=== PATIENT | female | born 1960 | race Caucasian/White ===

== ENCOUNTER → 2017-02-05 | Outpatient (CLI) | payer BC ==
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
== END | disposition home or self-care (01) ==
LOC: SLEEP 11:27
PROVIDERS: ATTEND Internal Medicine
DX: G47.33 Obstructive sleep apnea (adult) (pediatric) (principal); E66.9 Obesity, unspecified; G83.14 Monoplegia of lower limb affecting left nondominant side; M79.89 Other specified soft tissue disorders; I10 Essential (primary) hypertension; Z68.42 Body mass index [BMI] 45.0-49.9, adult
CPT/HCPCS: 99211

== ENCOUNTER 2018-01-23 12:08 | Inpatient (IN) | payer BC ==
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
[2018-01-23] MEDS ORDERED: cefTRIAXone IN SWFI 1,000 MG/10 ML SYRINGE IVP STA (13:03)
[2018-01-23 13:53] LABS: INR 1.5 (<1.2); Partial Thromboplastin Time 29.2 sec (22.0-30.0); Prothrombin Time 14.2 sec (9.0-12.0)
[2018-01-23 13:56] LABS: Basophils % (A) 0 %; Eosinophils # (A) 0.1 k/uL (0-0.7); Eosinophils % (A) 1 %; HCT 37.9 % (34.0-46.0); HGB 12.6 gm/dL (11.4-16.0); Lymphocytes # (A) 1.1 k/uL (1.0-4.8); Lymphocytes % (A) 15 %; MCH 30.7 pg (25.0-35.0); MCHC 33.3 g/dL (31.0-37.0); MCV 92.1 fL (80.0-100.0); Mean Platelet Volume 7.4; Monocytes # (A) 0.4 k/uL (0-1.0); Monocytes % (A) 5 %; Neutrophils # (A) 5.8 k/uL (1.3-7.7); Neutrophils % (A) 77 %; Platelet Count 272 k/uL (150-450); RBC 4.11 m/uL (3.80-5.40); RDW 14.7 % (11.5-15.5); WBC 7.5 k/uL (3.8-10.6)
[2018-01-23 13:58] LABS: ALT 47 U/L (9-52); AST 46 U/L (14-36); Albumin 3.8 g/dL (3.5-5.0); Alkaline Phosphatase 78 U/L (38-126); Anion Gap 13 mmol/L; Blood Urea Nitrogen 15 mg/dL (7-17); Carbon Dioxide 25 mmol/L (22-30); Chloride 101 mmol/L (98-107); Glucose 119 mg/dL (74-99); Potassium 3.4 mmol/L (3.5-5.1); Sodium 139 mmol/L (137-145); Total Bilirubin 0.7 mg/dL (0.2-1.3); Total Protein 7.3 g/dL (6.3-8.2)
--- NOTE | 2018-01-23 14:03 | US ---
EXAMINATION TYPE: US venous doppler duplex LE RT DATE OF EXAM: 01/23/2018 1:53 PM COMPARISON: NONE CLINICAL HISTORY: Pain. SIDE PERFORMED: right TECHNIQUE: The lower extremity deep venous system is examined utilizing real time linear array sonog dina with graded compression, doppler sonography and color-flow sonography. VESSELS IMAGED: External Iliac Vein (EIV) Common Femoral Vein Deep Femoral Vein Greater Saphenous Vein * Femoral Vein Popliteal Vein Small Saphenous Vein * Proximal Calf Veins (* superficial vessels) Patient 5'3", 320lbs. Technically difficult and somewhat limited study. Right Leg: Appears nnegative for DVT, in this somewhat limited study. Unable to obtain mid and distal femoral compression view due to depth, unable to turn in sag to see m id popliteal in color. No popliteal fossa lesion is seen. IMPRESSION: TECHNICALLY DIFFICULT EXAMINATION DEMONSTRATING NO DEFINITE DVT WITHIN THE RIGHT LEG.
[2018-01-23] MEDS ORDERED: VANCOMYCIN IV PER PHARMACY 1 EACH MISC MISCELLANE PRN (15:00)
[2018-01-23] MEDS ORDERED: ACETAMINOPHEN TAB 325 MG TAB PO PRN (15:01)
[2018-01-23] MEDS ORDERED: NALOXONE 0.4 MG/ML 1 ML VIAL IV PRN (15:01)
[2018-01-23] MEDS ORDERED: MORPHINE SULFATE 2 MG/ML SYRINGE IV PRN (15:01)
[2018-01-23] MEDS ORDERED: VANCOMYCIN 2,000 MG in SODIUM CHLORIDE 0.9% 500 ML IVPB STA (15:11)
[2018-01-23] MEDS: SODIUM CHLORIDE 0.9% 1,000 ML IV SCH (16:14)
[2018-01-23 16:40] VITALS: BMI 56.6
[2018-01-23] MEDS ORDERED: Potassium Replacement Protocol 1 EACH MISC MISCELLANE PRN (17:17)
[2018-01-23] MEDS: GABAPENTIN 400 MG CAP PO SCH ×2 (17:55→21:48)
[2018-01-23] MEDS: TRIAMTERENE-HCTZ 37.5-25MG 1 EACH CAP PO SCH (17:55)
[2018-01-23] MEDS: POTASSIUM CHLORIDE ER 20 MEQ TAB.ER PO SCH ×2 (18:20→19:56)
[2018-01-23] MEDS: WARFARIN 3 MG TAB PO SCH (18:20)
[2018-01-23] MEDS: NEOMYCIN-BACITRACIN-POLY OINT 14 GM TUBE TOPICAL SCH (21:48)
[2018-01-24] MEDS: VANCOMYCIN 2,000 MG in SODIUM CHLORIDE 0.9% 500 ML IVPB SCH ×2 (07:31→20:10)
[2018-01-24 07:39] LABS: ALT 50 U/L (9-52); AST 35 U/L (14-36); Albumin 3.6 g/dL (3.5-5.0); Alkaline Phosphatase 76 U/L (38-126); Anion Gap 12 mmol/L; Blood Urea Nitrogen 15 mg/dL (7-17); Calcium 9.1 mg/dL (8.4-10.2); Carbon Dioxide 26 mmol/L (22-30); Chloride 102 mmol/L (98-107); Glucose 103 mg/dL (74-99); Magnesium 2.1 mg/dL (1.6-2.3); Potassium 3.4 mmol/L (3.5-5.1); Sodium 140 mmol/L (137-145); Total Bilirubin 0.5 mg/dL (0.2-1.3); Total Protein 6.8 g/dL (6.3-8.2)
[2018-01-24 07:48] LABS: Basophils % (A) 1 %; Eosinophils # (A) 0.1 k/uL (0-0.7); Eosinophils % (A) 3 %; HCT 37.3 % (34.0-46.0); HGB 12.2 gm/dL (11.4-16.0); INR 1.8 (<1.2); Lymphocytes % (A) 22 %; MCHC 32.7 g/dL (31.0-37.0); Mean Platelet Volume 7.1; Monocytes # (A) 0.2 k/uL (0-1.0); Monocytes % (A) 5 %; Neutrophils # (A) 2.9 k/uL (1.3-7.7); Neutrophils % (A) 66 %; Platelet Count 317 k/uL (150-450); Prothrombin Time 16.2 sec (9.0-12.0); RBC 3.93 m/uL (3.80-5.40); WBC 4.4 k/uL (3.8-10.6)
[2018-01-24] MEDS ORDERED: cefTRIAXone IN SWFI 1,000 MG/10 ML SYRINGE IVP SCH (09:00)
[2018-01-24] MEDS: GABAPENTIN 400 MG CAP PO SCH ×3 (09:04→21:06)
[2018-01-24] MEDS: NEOMYCIN-BACITRACIN-POLY OINT 14 GM TUBE TOPICAL SCH ×2 (09:05→20:10)
[2018-01-24] MEDS: TRIAMTERENE-HCTZ 37.5-25MG 1 EACH CAP PO SCH (09:05)
[2018-01-24] MEDS ORDERED: Potassium Replacement Protocol 1 EACH MISC MISCELLANE PRN (09:16)
[2018-01-24] MEDS: POTASSIUM CHLORIDE ER 20 MEQ TAB.ER PO SCH ×2 (10:23→12:06)
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
[2018-01-24] MEDS: SODIUM CHLORIDE 0.9% 1,000 ML IV SCH (17:35)
[2018-01-24] MEDS ORDERED: WARFARIN 3 MG TAB PO SCH (18:00)
[2018-01-25] MEDS: GABAPENTIN 400 MG CAP PO SCH ×3 (07:50→21:01)
[2018-01-25] MEDS: VANCOMYCIN 2,000 MG in SODIUM CHLORIDE 0.9% 500 ML IVPB SCH ×2 (07:50→18:59)
[2018-01-25] MEDS: NEOMYCIN-BACITRACIN-POLY OINT 14 GM TUBE TOPICAL SCH ×2 (07:51→20:25)
[2018-01-25] MEDS: TRIAMTERENE-HCTZ 37.5-25MG 1 EACH CAP PO SCH (07:51)
[2018-01-25 09:43] LABS: INR 1.8 (<1.2); Prothrombin Time 16.8 sec (9.0-12.0)
[2018-01-25 09:57] LABS: Anion Gap 9 mmol/L; Blood Urea Nitrogen 14 mg/dL (7-17); Calcium 8.8 mg/dL (8.4-10.2); Carbon Dioxide 26 mmol/L (22-30); Chloride 106 mmol/L (98-107); Glucose 145 mg/dL (74-99); Potassium 3.7 mmol/L (3.5-5.1); Sodium 141 mmol/L (137-145)
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
[2018-01-25] MEDS: SODIUM CHLORIDE 0.9% 1,000 ML IV SCH (15:36)
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
--- NOTE | 2018-01-25 15:50 | US ---
EXAMINATION TYPE: US extremity nonvasc mass RT DATE OF EXAM: 01/25/2018 COMPARISON: Lower extremity Doppler duplex same date CLINICAL HISTORY: Cellulitis, abnormal physical exam. Patient states doctor felt posterior hardness i n right calf. Posterior right calf scanned with superficial edema noted. No masses or lesions identified. Contral ateral image taken. There are edema channels noted at the site of patient's symptomatology in the posterior right leg IMPRESSION: Abscess is not seen, edema is noted, correlate for cellulitis
[2018-01-25] MEDS: WARFARIN 3 MG TAB PO SCH (18:00)
[2018-01-26] MEDS ORDERED: VANCOMYCIN TROUGH DUE 1 EACH MISC MISCELLANE ONE (06:00)
[2018-01-26] MEDS: TRIAMTERENE-HCTZ 37.5-25MG 1 EACH CAP PO SCH (07:46)
[2018-01-26] MEDS: GABAPENTIN 400 MG CAP PO SCH ×3 (07:46→21:11)
[2018-01-26] MEDS: VANCOMYCIN 2,000 MG in SODIUM CHLORIDE 0.9% 500 ML IVPB SCH (07:46)
[2018-01-26] MEDS: NEOMYCIN-BACITRACIN-POLY OINT 14 GM TUBE TOPICAL SCH (07:47)
[2018-01-26 08:29] LABS: INR 2.1 (<1.2); Prothrombin Time 18.6 sec (9.0-12.0)
[2018-01-26 08:30] LABS: Anion Gap 9 mmol/L; Blood Urea Nitrogen 11 mg/dL (7-17); Calcium 9.1 mg/dL (8.4-10.2); Carbon Dioxide 26 mmol/L (22-30); Chloride 105 mmol/L (98-107); Glucose 100 mg/dL (74-99); Potassium 3.9 mmol/L (3.5-5.1); Sodium 140 mmol/L (137-145)
[2018-01-26] MEDS ORDERED: traMADol 50 MG TAB PO PRN (13:06)
[2018-01-26] MEDS ORDERED: MORPHINE SULFATE 2 MG/ML SYRINGE IV PRN (13:09)
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
[2018-01-26] MEDS: SODIUM CHLORIDE 0.9% 1,000 ML IV SCH (15:31)
[2018-01-26] MEDS: ceFAZolin IN SWFI 2 GM/20 ML SYRINGE IVP SCH ×2 (17:07→22:57)
[2018-01-26] MEDS: WARFARIN 3 MG TAB PO SCH (17:07)
[2018-01-26] MEDS: FAMOTIDINE 20 MG/2 ML VIAL IV SCH (21:11)
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
[2018-01-27] MEDS: ceFAZolin IN SWFI 2 GM/20 ML SYRINGE IVP SCH ×3 (07:51→23:59)
[2018-01-27] MEDS: FAMOTIDINE 20 MG/2 ML VIAL IV SCH (07:51)
[2018-01-27] MEDS: GABAPENTIN 400 MG CAP PO SCH ×3 (07:51→21:50)
[2018-01-27] MEDS: TRIAMTERENE-HCTZ 37.5-25MG 1 EACH CAP PO SCH (07:51)
[2018-01-27 08:21] LABS: INR 2.2 (<1.2); Prothrombin Time 19.6 sec (9.0-12.0)
[2018-01-27 08:30] LABS: Anion Gap 12 mmol/L; Blood Urea Nitrogen 12 mg/dL (7-17); Calcium 9.1 mg/dL (8.4-10.2); Carbon Dioxide 26 mmol/L (22-30); Chloride 106 mmol/L (98-107); Glucose 97 mg/dL (74-99); Potassium 3.8 mmol/L (3.5-5.1); Sodium 144 mmol/L (137-145)
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
[2018-01-27] MEDS: SODIUM CHLORIDE 0.9% 1,000 ML IV SCH (16:37)
[2018-01-27] MEDS: WARFARIN 3 MG TAB PO SCH (16:39)
[2018-01-27] MEDS: FAMOTIDINE 20 MG TAB PO SCH (21:50)
--- NOTE | 2018-01-27 23:32 | PN ---
PROGRESS NOTE DATE OF SERVICE: 01/27/2018 REASON FOR FOLLOWUP: 1. Left foot wound. 2. Right leg cellulitis. INTERVAL HISTORY: The patient is afebrile. She is currently breathing comfortably. Denies significant chest pain or cough. No abdominal pain and any pain to the right leg area. PHYSICAL EXAMINATION: Blood pressure is 148/90 with a pulse of 88, temperature 97.9. She is 95% on room air. General description is a middle-aged female lying in bed in no distress. RESPIRATORY SYSTEM: Unlabored breathing. Clear to auscultation anteriorly. HEART: S1, S2. Regular rate and rhythm. ABDOMEN: Soft. No tenderness. Right leg swelling and redness have slightly decreased. LABS: BUN of 12, creatinine 0.61. Blood cultures have been negative. DIAGNOSTIC IMPRESSION AND PLAN: 1. Patient with right leg cellulitis with diffuse swelling and redness, likely streptococcal disease. Patient to continue cefazolin 2 grams q.12 hours for another 24 hours. Will re-evaluate the patient tomorrow. If she shows clinical improvement, she will finish therapy with oral Keflex. 2. Left foot wound. Local wound care with an Aquacel Silver dressing. MMODL / IJN: [id number] /
[2018-01-27 23:40] VITALS: RESP 16
[2018-01-28 06:31] VITALS: BP 147/81; PULSE 75; TEMP 98.1
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
[2018-01-28 08:46] LABS: Basophils % (A) 1 %; Eosinophils # (A) 0.1 k/uL (0-0.7); Eosinophils % (A) 3 %; HCT 38.5 % (34.0-46.0); HGB 12.2 gm/dL (11.4-16.0); Hypochromasia Slight; Lymphocytes # (A) 1.1 k/uL (1.0-4.8); Lymphocytes % (A) 20 %; MCH 30.5 pg (25.0-35.0); MCHC 31.8 g/dL (31.0-37.0); MCV 95.7 fL (80.0-100.0); Mean Platelet Volume 7.1; Monocytes # (A) 0.3 k/uL (0-1.0); Monocytes % (A) 6 %; Neutrophils # (A) 3.8 k/uL (1.3-7.7); Neutrophils % (A) 69 %; Platelet Count 381 k/uL (150-450); RBC 4.02 m/uL (3.80-5.40); RDW 14.7 % (11.5-15.5); WBC 5.5 k/uL (3.8-10.6)
[2018-01-28 08:48] LABS: INR 2.3 (<1.2); Prothrombin Time 20.5 sec (9.0-12.0)
[2018-01-28] MEDS ORDERED: BACITRACIN 500 UNIT/GM OINT 28.4 GM TUBE TOPICAL SCH (09:00)
[2018-01-28 09:06] LABS: Anion Gap 9 mmol/L; Blood Urea Nitrogen 12 mg/dL (7-17); Carbon Dioxide 24 mmol/L (22-30); Chloride 109 mmol/L (98-107); Glucose 104 mg/dL (74-99); Potassium 4.1 mmol/L (3.5-5.1); Sodium 142 mmol/L (137-145)
[2018-01-28] MEDS: FAMOTIDINE 20 MG TAB PO SCH (09:46)
[2018-01-28] MEDS: TRIAMTERENE-HCTZ 37.5-25MG 1 EACH CAP PO SCH (09:46)
[2018-01-28] MEDS: ceFAZolin IN SWFI 2 GM/20 ML SYRINGE IVP SCH ×2 (09:46→14:54)
[2018-01-28] MEDS: GABAPENTIN 400 MG CAP PO SCH ×2 (09:46→15:00)
[2018-01-28] MEDS: SODIUM CHLORIDE 0.9% 1,000 ML IV SCH (11:20)
--- NOTE | 2018-01-28 15:24 | PN ---
PROGRESS NOTE DATE OF SERVICE: 01/28/2018 REASON FOR FOLLOWUP: 1. Right leg cellulitis. 2. Left foot wound: INTERVAL HISTORY: The patient is currently afebrile. She is breathing comfortably. Denies having any chest pain or shortness of breath. No abdominal pain, overall pain to the right leg has improved. No pain to the left foot. PHYSICAL EXAMINATION: Blood pressure 147/81 with a pulse of 75, temperature 98.1. He is 94% on room air. General description is a middle-aged female, lying in bed in no distress. RESPIRATORY SYSTEM: Unlabored breathing, clear to auscultation anteriorly. HEART: S1, S2. Regular rate and rhythm. ABDOMEN: Soft, no tenderness. Right leg swelling has slightly decreased. No open wound or drainage. Left foot wound clean with no drainage. LABS: White count of 5.5 with a BUN of 12, creatinine 0.53. DIAGNOSTIC IMPRESSION AND PLAN: 1. Patient with right lower extremity cellulitis with diffuse swelling and redness showing more likely a streptococcal disease and did have improvement on cefazolin. Antibiotics were adjusted to Keflex and a p.o. Keflex along with doxycycline for 10 days along with Marv wrap to keep the swelling down. Patient is to have weekly monitoring of her INR while the patient is on antibiotic therapy. 2. Patient with left foot wound. Local wound care with Aquacel Silver dressing to be changed q.48 hours along with an Marv wrap. MARYANN / LEONELA: [id number] /
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
== END 2018-01-28 16:31 | disposition home or self-care (01) | DRG 603 ==
LOC: EC 12:08 → 4MS4W 15:01
PROVIDERS: ADMIT Internal Medicine; ATTEND Internal Medicine
DX: L03.115 Cellulitis of right lower limb (principal); Z68.43 Body mass index [BMI] 50.0-59.9, adult; G82.22 Paraplegia, incomplete; E66.01 Morbid (severe) obesity due to excess calories; I10 Essential (primary) hypertension; L97.529 Non-pressure chronic ulcer of other part of left foot with unspecified severity; R79.1 Abnormal coagulation profile; T25.222D Burn of second degree of left foot, subsequent encounter; V89.2XXS Person injured in unspecified motor-vehicle accident, traffic, sequela; Z79.01 Long term (current) use of anticoagulants; Z79.899 Other long term (current) drug therapy; Z86.718 Personal history of other venous thrombosis and embolism; Z99.3 Dependence on wheelchair; Z88.2 Allergy status to sulfonamides; Z96.698 Presence of other orthopedic joint implants
CPT/HCPCS: 36415; 80048; 80053; 80202; 83605; 83735; 85025; 85610; 85730; 87040; 96374; 99285

== ENCOUNTER → 2018-08-05 | Outpatient (CLI) | payer SELFPAY ==
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
== END | disposition home or self-care (01) ==
LOC: SLEEP 11:52
PROVIDERS: ATTEND Internal Medicine
DX: G47.33 Obstructive sleep apnea (adult) (pediatric) (principal); E66.9 Obesity, unspecified; R22.43 Localized swelling, mass and lump, lower limb, bilateral; I10 Essential (primary) hypertension; G82.20 Paraplegia, unspecified; Z86.19 Personal history of other infectious and parasitic diseases; Z87.81 Personal history of (healed) traumatic fracture; Z99.89 Dependence on other enabling machines and devices; Z79.01 Long term (current) use of anticoagulants; Z79.899 Other long term (current) drug therapy

== ENCOUNTER → 2019-04-21 | Outpatient (CLI) | payer BC ==
--- NOTE | 2019-04-26 09:16 | MM ---
Reason for exam: screening (asymptomatic). Last mammogram was performed 3 years and 6 months ago. History: Family history of breast cancer in maternal cousin, breast cancer in maternal grandmother, breast cancer in maternal aunt, and breast cancer in paternal grandmother. Physical Findings: A clinical breast exam by your physician is recommended on an annual basis and results should be correlated with mammographic findings. MG 3D Screening Mammo W/Cad Bilateral CC and MLO view(s) were taken. Prior study comparison: October 24, 2015, bilateral MG screening mammo w CAD. February 09, 2012, mammogram, performed at [facility]. There are scattered fibroglandular densities. There are benign appearing round calcifications bilaterally. No significant changes when compared with prior studies. ASSESSMENT: Benign, BI-RAD 2 RECOMMENDATION: Routine screening mammogram of both breasts in 1 year.
== END | disposition home or self-care (01) ==
LOC: RADMAMWWP 14:16
PROVIDERS: ATTEND Family Medicine
DX: Z12.31 Encounter for screening mammogram for malignant neoplasm of breast (principal)
CPT/HCPCS: 77063; 77067

== ENCOUNTER → 2022-01-01 | Outpatient (CLI) | payer MEDICARE ==
[2022-01-01 12:50] LABS: ALT 21 U/L (4-34); African American GFR (CKD) >90 (>60 ml/min/1.73 sqM); Albumin 4.3 g/dL (3.5-5.0); Albumin/Globulin Ratio 1.1; Anion Gap 10 mmol/L; Blood Urea Nitrogen 16 mg/dL (7-17); Calcium 9.1 mg/dL (8.4-10.2); Carbon Dioxide 24 mmol/L (22-30); Chloride 107 mmol/L (98-107); Globulin 3.8 g/dL; Glucose 85 mg/dL (74-99); Non-African American GFR(CKD) >90 (>60 ml/min/1.73 sqM); Sodium 141 mmol/L (137-145); Total Bilirubin 0.7 mg/dL (0.2-1.3); Total Protein 8.1 g/dL (6.3-8.2)
[2022-01-01 12:56] LABS: AST 33 U/L (14-36); Alkaline Phosphatase 65 U/L (38-126); Potassium 4.5 mmol/L (3.5-5.1)
[2022-01-01 13:15] LABS: Anisocytosis Slight; Basophils # (A) 0.1 k/uL (0-0.2); Basophils % (A) 1 %; Eosinophils # (A) 0.1 k/uL (0-0.7); Eosinophils % (A) 3 %; HCT 42.6 % (34.0-46.0); HGB 13.7 gm/dL (11.4-16.0); Lymphocytes # (A) 1.2 k/uL (1.0-4.8); Lymphocytes % (A) 30 %; MCH 30.1 pg (25.0-35.0); MCHC 32.2 g/dL (31.0-37.0); MCV 93.5 fL (80.0-100.0); Mean Platelet Volume 8.3; Monocytes # (A) 0.3 k/uL (0-1.0); Monocytes % (A) 6 %; Neutrophils # (A) 2.3 k/uL (1.3-7.7); Neutrophils % (A) 57 %; Platelet Count 328 k/uL (150-450); RBC 4.55 m/uL (3.80-5.40); RDW 16.5 % (11.5-15.5); WBC 4.1 k/uL (3.8-10.6)
[2022-01-01 21:09] LABS: Chol/HDL Ratio 2.88 Ratio; LDL Cholesterol,Calculated 142.5 mg/dL (0.0-131.0)
== END | disposition home or self-care (01) ==
LOC: LABWHC1 10:55
PROVIDERS: ATTEND Physician Assistant
DX: Z00.01 Encounter for general adult medical examination with abnormal findings (principal); I12.9 Hypertensive chronic kidney disease with stage 1 through stage 4 chronic kidney disease, or unspecified chronic kidney disease; E55.9 Vitamin D deficiency, unspecified; N18.30 Chronic kidney disease, stage 3 unspecified
CPT/HCPCS: 36415; 80053; 80061; 82306; 84443; 85025

== ENCOUNTER 2022-10-01 10:45 | Inpatient (IN) | payer OTHER, MEDICARE ==
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
[2022-10-01 13:22] LABS: Basophils % (A) 1 %; Eosinophils # (A) 0.1 k/uL (0-0.7); Eosinophils % (A) 3 %; HCT 36.7 % (34.0-46.0); Hypochromasia Slight; Lymphocytes # (A) 1.3 k/uL (1.0-4.8); Lymphocytes % (A) 25 %; MCH 30.7 pg (25.0-35.0); MCHC 32.6 g/dL (31.0-37.0); Mean Platelet Volume 7.1; Monocytes # (A) 0.3 k/uL (0-1.0); Monocytes % (A) 6 %; Neutrophils # (A) 3.3 k/uL (1.3-7.7); Neutrophils % (A) 63 %; Platelet Count 370 k/uL (150-450); Poikilocytosis Slight; RDW 14.5 % (11.5-15.5); WBC 5.2 k/uL (3.8-10.6)
[2022-10-01 13:35] LABS: ALT 27 U/L (4-34); AST 25 U/L (14-36); African American GFR (CKD) >90 (>60 ml/min/1.73 sqM); Albumin 4.2 g/dL (3.5-5.0); Alkaline Phosphatase 88 U/L (38-126); Anion Gap 6 mmol/L; Blood Urea Nitrogen 16 mg/dL (7-17); C Reactive Protein 2.4 mg/dL (<1.0); Calcium 8.6 mg/dL (8.4-10.2); Carbon Dioxide 28 mmol/L (22-30); Chloride 106 mmol/L (98-107); Glucose 94 mg/dL (74-99); Non-African American GFR(CKD) >90 (>60 ml/min/1.73 sqM); Potassium 3.6 mmol/L (3.5-5.1); Sodium 140 mmol/L (137-145); Total Bilirubin 0.4 mg/dL (0.2-1.3); Total Protein 8.1 g/dL (6.3-8.2)
--- NOTE | 2022-10-01 13:49 | XR ---
EXAMINATION TYPE: XR foot limited LT DATE OF EXAM: 10/01/2022 COMPARISON: 01/26/2018 HISTORY: Open wound with swelling TECHNIQUE: Two views are submitted. FINDINGS: There is diffuse soft tissue edema within calcaneus and a well-corticated chronic appearing density a djacent. There is apparent postsurgical change involving. Arthropathy of the first MDP joint. There i s a fracture involving the distal margin proximal phalanx fourth digit. Sclerotic appearance of the k nees are seen. 1. Diffuse soft tissue edema correlate for cellulitis. IMPRESSION: 2. There is a new fracture mildly displaced distal margin proximal phalanx fourth digit. 3. T Postsurgical change involving the fifth digit with sclerotic changes involving the fifth metatar ingrid. Sclerosis can be associated with chronic osteomyelitis. Correlate clinically.
[2022-10-01] MEDS ORDERED: NALOXONE 0.4 MG/ML 1 ML VIAL IV PRN (13:57)
[2022-10-01] MEDS ORDERED: ACETAMINOPHEN TAB 325 MG TAB PO PRN (14:24)
[2022-10-01 14:38] LABS: Erythrocyte Sedimentation Rate 39 mm/hr (0-20)
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
[2022-10-01] MEDS: GABAPENTIN 400 MG CAP PO SCH ×2 (16:37→20:17)
[2022-10-01 18:12] LABS: INR 2.2 (<1.2); Prothrombin Time 21.2 sec (9.0-12.0)
[2022-10-01] MEDS ORDERED: WARFARIN 3 MG TAB PO ONE (19:00)
[2022-10-01] MEDS: METOPROLOL TARTRATE 25 MG TAB PO SCH (20:17)
[2022-10-02] MEDS: GABAPENTIN 400 MG CAP PO SCH ×3 (08:02→20:39)
[2022-10-02] MEDS: METOPROLOL TARTRATE 25 MG TAB PO SCH ×2 (08:02→20:39)
[2022-10-02] MEDS: TRIAMTERENE-HCTZ 37.5-25MG 1 EACH CAP PO SCH (08:02)
[2022-10-02 10:07] LABS: African American GFR (CKD) 114.8 (60.0-200.0); Anion Gap 14.7 mmol/L (10.00-18.00); BUN/Creat Ratio 24.33 Ratio (12.00-20.00); Blood Urea Nitrogen 14.6 mg/dL (9.0-27.0); Carbon Dioxide 22.3 mmol/L (20.0-27.5); Non-African American GFR(CKD) 99.1 (60.0-200.0); Potassium 3.8 mmol/L (3.5-5.5)
[2022-10-02 11:03] LABS: INR 1.82 (0.90-1.11); Prothrombin Time 20.1 sec (9.9-11.9)
[2022-10-02 12:54] VITALS: BMI 49.6
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
[2022-10-02] MEDS ORDERED: WARFARIN 3 MG TAB PO ONE (18:00)
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
[2022-10-02] MEDS: CEFEPIME 2 GM in SODIUM CHLORIDE 0.9% 100 ML IVPB SCH (23:49)
[2022-10-03] MEDS: CEFEPIME 2 GM in SODIUM CHLORIDE 0.9% 100 ML IVPB SCH ×3 (01:53→16:28)
[2022-10-03] MEDS: GABAPENTIN 400 MG CAP PO SCH ×3 (08:45→21:20)
[2022-10-03] MEDS: METOPROLOL TARTRATE 25 MG TAB PO SCH ×2 (08:45→21:20)
[2022-10-03] MEDS: TRIAMTERENE-HCTZ 37.5-25MG 1 EACH CAP PO SCH (08:45)
[2022-10-03 10:33] LABS: INR 1.92 (0.90-1.11); Prothrombin Time 21.2 sec (9.9-11.9)
[2022-10-03] MEDS ORDERED: VANCOMYCIN IV PER PHARMACY 1 EACH MISC MISCELLANE PRN (11:42)
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
[2022-10-03] MEDS: VANCOMYCIN 2,000 MG in SODIUM CHLORIDE 0.9% 500 ML 500 ML IVPB SCH (13:32)
--- NOTE | 2022-10-03 13:59 | US ---
EXAMINATION TYPE: US arterial LE single level DATE OF EXAM: 10/01/2022 4:37 PM CLINICAL HISTORY: wound. History of: Smoker: No Hypertension: Yes Diabetic: No Hyperlipidemia: No TIA/CVA: No ME: No Doppler Waveforms: Right: Monophasic waveforms involving the digit. Biphasic waveforms involving the posterior tibial ar prasanna and dorsalis pedis artery. Monophasic right femoral and popliteal waveforms. Left: Monophasic waveforms involving the digit. Biphasic waveforms involving the posterior tibial art marco antonio and dorsalis pedis artery. Biphasic waveforms involving the femoral artery. Monophasic waveforms involving the popliteal artery. Right Brachial Pressure: Deferred due to right arm surgery Left Brachial Pressure: 167 Ankle-Brachial Indices: Right: 1.16 Left: 1.06 Toe Brachial Indices: Right: 0.50 Left: 0.79 IMPRESSION: Mild to moderate peripheral arterial disease involving the bilateral digits, popliteal, and right femoral arteries.
--- NOTE | 2022-10-03 14:13 | NM ---
EXAMINATION TYPE: NM bone 3 phase DATE OF EXAM: 10/03/2022 COMPARISON: 10/01/2022 HISTORY: left foot wound and abnormal xray Triple phase bone scintigraphy was performed following the injection of 25.5 mCi Tc 99m MDP. Immedia te images and 5.5 hours post injection images acquired. FINDINGS: There is increased perfusion to the left foot. There is increased blood pool activity within the soft tissues suggestive of cellulitis. Delayed imaging demonstrates diffuse increased uptake in the regio n of the tarsal bones and first digit. IMPRESSION: Findings suggestive of osteomyelitis and cellulitis..
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
[2022-10-03] MEDS ORDERED: WARFARIN 3 MG TAB PO ONE (18:00)
[2022-10-04] MEDS: VANCOMYCIN 2,000 MG in SODIUM CHLORIDE 0.9% 500 ML 500 ML IVPB SCH ×2 (00:15→12:14)
[2022-10-04] MEDS: TRIAMTERENE-HCTZ 37.5-25MG 1 EACH CAP PO SCH (07:35)
[2022-10-04] MEDS: METOPROLOL TARTRATE 25 MG TAB PO SCH ×2 (07:35→20:05)
[2022-10-04] MEDS: GABAPENTIN 400 MG CAP PO SCH ×3 (07:35→20:05)
[2022-10-04 09:26] LABS: INR 1.91 (0.90-1.11); Prothrombin Time 21.1 sec (9.9-11.9)
[2022-10-04 09:44] LABS: African American GFR (CKD) 114.8 (60.0-200.0); Anion Gap 8.3 mmol/L (10.00-18.00); BUN/Creat Ratio 23.83 Ratio (12.00-20.00); Blood Urea Nitrogen 14.3 mg/dL (9.0-27.0); Calcium 8.6 mg/dL (8.7-10.3); Carbon Dioxide 25.7 mmol/L (20.0-27.5); Non-African American GFR(CKD) 99.1 (60.0-200.0); Potassium 3.6 mmol/L (3.5-5.5)
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
[2022-10-04] MEDS: SODIUM HYPOCHLORITE 0.25% 480 ML BOT MISCELLANE SCH (11:43)
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
[2022-10-04] MEDS ORDERED: WARFARIN 3 MG TAB PO ONE (18:00)
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
[2022-10-05] MEDS: VANCOMYCIN 2,000 MG in SODIUM CHLORIDE 0.9% 500 ML 500 ML IVPB SCH ×3 (00:45→23:45)
[2022-10-05 06:05] LABS: INR 2.4 (<1.2); Prothrombin Time 23.5 sec (9.0-12.0)
[2022-10-05] MEDS: GABAPENTIN 400 MG CAP PO SCH ×3 (08:29→20:46)
[2022-10-05] MEDS: TRIAMTERENE-HCTZ 37.5-25MG 1 EACH CAP PO SCH (08:29)
[2022-10-05] MEDS: METOPROLOL TARTRATE 25 MG TAB PO SCH ×2 (08:29→20:46)
[2022-10-05] MEDS: SODIUM HYPOCHLORITE 0.25% 480 ML BOT MISCELLANE SCH (09:19)
[2022-10-05 09:46] LABS: HCT 33.1 % (37.2-46.3); HGB 10.4 g/dL (12.0-15.0); MCH 30.1 pg (27.0-32.0); MCHC 31.4 g/dL (32.0-37.0); MCV 95.9 fL (80.0-97.0); Mean Platelet Volume 9.6 fL (9.5-12.2); NRBC Per 100 WBC 0 /100 WBCS (0.0-0.0); Platelet Count 331 X 10*3/uL (140-440); RBC 3.45 X 10*6/uL (4.10-5.20); RDW 14.4 % (11.5-14.5); WBC 4.72 X 10*3/uL (4.50-10.00)
[2022-10-05 09:47] LABS: African American GFR (CKD) 106.6 (60.0-200.0); Anion Gap 7.9 mmol/L (10.00-18.00); BUN/Creat Ratio 23.53 Ratio (12.00-20.00); Blood Urea Nitrogen 16.8 mg/dL (9.0-27.0); C Reactive Protein 2.8 mg/dL (0.00-0.80); Calcium 8.6 mg/dL (8.7-10.3); Carbon Dioxide 26.8 mmol/L (20.0-27.5); Non-African American GFR(CKD) 91.9 (60.0-200.0); Potassium 3.6 mmol/L (3.5-5.5)
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
[2022-10-05] MEDS ORDERED: WARFARIN 2 MG TAB PO ONE (18:00)
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
[2022-10-05] MEDS ORDERED: VANCOMYCIN TROUGH DUE 1 EACH MISC MISCELLANE ONE (23:00)
[2022-10-06 06:46] LABS: INR 2.4 (<1.2); Prothrombin Time 23.8 sec (9.0-12.0)
[2022-10-06] MEDS: METOPROLOL TARTRATE 25 MG TAB PO SCH (08:40)
[2022-10-06] MEDS: TRIAMTERENE-HCTZ 37.5-25MG 1 EACH CAP PO SCH (08:40)
[2022-10-06] MEDS: GABAPENTIN 400 MG CAP PO SCH ×2 (08:40→15:11)
[2022-10-06 09:16] LABS: African American GFR (CKD) 114.8 (60.0-200.0); Non-African American GFR(CKD) 99.1 (60.0-200.0)
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
[2022-10-06 14:05] VITALS: BP 146/77; PULSE 92; RESP 15; TEMP 97.5
--- NOTE | 2022-10-06 15:21 | IR ---
PICC LINE PLACEMENT: HISTORY: Infection requiring long-term antibiotic therapy PROCEDURE: Ultrasound and fluoroscopic guidance of PICC line placement. COMPLICATIONS: None ANESTHESIA: 1. 1% Lidocaine locally. FINDINGS/TECHNIQUE: The procedure was explained to the patient. The risks, complications, benefits and alternatives were discussed and any questions were answered. Informed consent was obtained. The patient was placed supine on the fluoroscopic table and prepped and draped in the usual sterile fash ion. Utilizing a 21 gauge needle and sonographic and fluoroscopic guidance, access in the left basi lic vein was achieved and there is placement of a 0.018 guidewire. The vein is patent. A 4-F sheath was placed over the guidewire. The guidewire and dilator were removed and a 4-F. PICC line was plac ed through the sheath with the tip at the level of the SVC. The sheath was removed, the catheter was flushed and sutured into position. The patient was stable throughout the procedure and remained sta ble upon discharge from the Department of Radiology. The vein puncture was patent under ultrasound. A lanier scale image was obtained to document patency of the vein punctured. All elements of the maximal barrier technique were utilized. FLUOROSCOPY TIME: DAP 4.39Gy cm2 IMPRESSION: Successful PICC line placement under ultrasound and fluoroscopic guidance.
[2022-10-06] MEDS: SODIUM HYPOCHLORITE 0.25% 480 ML BOT MISCELLANE SCH (15:59)
[2022-10-06] MEDS ORDERED: VANCOMYCIN 2,000 MG in SODIUM CHLORIDE 0.9% 500 ML 500 ML IVPB SCH (16:00)
[2022-10-06] MEDS ORDERED: WARFARIN 5 MG TAB PO ONE (18:00)
== END 2022-10-06 19:09 | disposition home health service (06) | DRG 540 ==
LOC: EC 10:45 → 4SSUR 14:11
PROVIDERS: ADMIT Family Medicine; ATTEND Family Medicine
PROC: 02HV33Z Insertion of Infusion Device into Superior Vena Cava, Percutaneous Approach (ICD-10-PCS; principal; 2022-10-06 12:40)
DX: M86.672 Other chronic osteomyelitis, left ankle and foot (principal); G82.22 Paraplegia, incomplete; L03.116 Cellulitis of left lower limb; M84.478A Pathological fracture, left toe(s), initial encounter for fracture; Z68.42 Body mass index [BMI] 45.0-49.9, adult; V29.99XS Rider (driver) (passenger) of other motorcycle injured in unspecified traffic accident, sequela; E66.01 Morbid (severe) obesity due to excess calories; B95.62 Methicillin resistant Staphylococcus aureus infection as the cause of diseases classified elsewhere; L97.529 Non-pressure chronic ulcer of other part of left foot with unspecified severity; I10 Essential (primary) hypertension; Z89.422 Acquired absence of other left toe(s); Z79.899 Other long term (current) drug therapy; Z79.01 Long term (current) use of anticoagulants; Z88.2 Allergy status to sulfonamides; Z86.718 Personal history of other venous thrombosis and embolism; Z99.3 Dependence on wheelchair
CPT/HCPCS: 36415; 36573; 78315; 80048; 80053; 80202; 82565; 83605; 85025; 85027; 85610; 85652; 86140; 87040; 87070; 87075; 87077; 87186; 87205; 93922; 94760; 99284

== ENCOUNTER → 2022-11-06 | Outpatient (CLI) | payer MEDICARE ==
--- NOTE | 2022-11-07 10:22 | MM ---
Reason for Exam: Screening (asymptomatic). Last mammogram was performed 3 year(s) and 6 month(s) ago. Patient History: Menarche at age 17. First Full-Term at age 27. Perimenopausal. Maternal cousin had breast cancer, age 55. Maternal aunt had breast cancer, age 30. Risk Values: Lashawn 5 year model risk: 1.5%. NCI Lifetime model risk: 7.4%. Prior Study Comparison: 02/09/2012 Screening Mammogram, [facility]. 10/24/2015 Bilateral Screening Mammogram, [facility]. 04/21/2019 Bilateral Screening Mammogram, [facility]. Tissue Density: There are scattered fibroglandular densities. Findings: Analyzed By CAD. There are small benign-appearing round and linear calcifications redemonstrated scattered throughout the bilateral breasts. There is no suspicious new group of microcalcifications or new suspicious mass in either breast. Overall Assessment: Benign, BI-RAD 2 Management: Screening Mammogram of both breasts in 1 year. A clinical breast exam by your physician is recommended on an annual basis and results should be correlated with mammographic findings. Electronically signed and approved by: Sincere Rea M.D.
== END | disposition home or self-care (01) ==
LOC: RADMAMWWP 15:57
PROVIDERS: ATTEND Family Medicine
DX: Z12.31 Encounter for screening mammogram for malignant neoplasm of breast (principal); Z80.3 Family history of malignant neoplasm of breast
CPT/HCPCS: 77067

== ENCOUNTER → 2023-01-29 | Outpatient (CLI) | payer MEDICARE ==
[2023-01-29 15:30] LABS: Basophils # (A) 0.04 X 10*3/uL (0.00-0.10); Basophils % (A) 0.9 %; Eosinophils # (A) 0.15 X 10*3/uL (0.04-0.35); Eosinophils % (A) 3.6 %; HCT 39.3 % (37.2-46.3); HGB 12.3 d/dL (12.0-15.0); Lymphocytes # (A) 1.13 X 10*3/uL (0.90-5.00); Lymphocytes % (A) 26.8 %; MCH 28.9 pg (27.0-32.0); MCHC 31.3 d/dL (32.0-37.0); MCV 92.5 FL (80.0-97.0); Mean Platelet Volume 10.2 FL (9.5-12.2); Monocytes # (A) 0.36 X 10*3/uL (0.20-1.00); Monocytes % (A) 8.5 %; NRBC Per 100 WBC 0 X 10*3/uL (0.00-0.01); Neutrophils # (A) 2.53 X 10*3/uL (1.80-7.70); Platelet Count 364 X 10*3/uL (140-440); RBC 4.25 X 10*6/uL (4.10-5.20); RDW 15.8 % (11.5-14.5); WBC 4.22 X 10*3/uL (4.50-10.00)
[2023-01-29 16:19] LABS: ALT 20 U/L (8-44); AST 20 U/L (13-35); Albumin/Globulin Ratio 1.03 Ratio (1.60-3.17); Alkaline Phosphatase 80 U/L (41-126); BUN/Creat Ratio 19.43 Ratio (12.00-20.00); Blood Urea Nitrogen 13.6 mg/dL (9.0-27.0); Calcium 9.5 mg/dL (8.7-10.3); Carbon Dioxide 24.7 mmol/L (21.6-31.8); Chloride 103 mmol/L (96-109); Chol/HDL Ratio 2.78 Ratio; Globulin 3.9 d/dL (1.6-3.3); Glucose 94 mg/dL (70-110); LDL Cholesterol,Calculated 107.2 mg/dL (0.0-131.0); Potassium 3.7 mmol/L (3.5-5.5); Sodium 140 mmol/L (135-145); Total Bilirubin 0.5 mg/dL (0.3-1.2); Total Protein 7.9 d/dL (6.2-8.2); VLDL Calculation 15.12 mg/dL (5.00-40.00)
== END | disposition home or self-care (01) ==
LOC: LABWHC1 09:52
PROVIDERS: ATTEND Family Medicine
DX: Z00.00 Encounter for general adult medical examination without abnormal findings (principal); I12.9 Hypertensive chronic kidney disease with stage 1 through stage 4 chronic kidney disease, or unspecified chronic kidney disease; E66.01 Morbid (severe) obesity due to excess calories; E55.9 Vitamin D deficiency, unspecified; N18.30 Chronic kidney disease, stage 3 unspecified
CPT/HCPCS: 36415; 80053; 80061; 82306; 84443; 85025

== ENCOUNTER → 2023-10-16 | Outpatient (CLI) | payer MEDICARE | END | disposition home or self-care (01) | LOC: LABWHC1 13:48 | PROVIDERS: ATTEND Family Medicine | DX: S01 Open wound of head (principal); G63 Polyneuropathy in diseases classified elsewhere; Y99.9 Unspecified external cause status | CPT/HCPCS: 36415; 83036 ==

== ENCOUNTER → 2023-12-28 | Outpatient (CLI) | payer MEDICARE ==
[2023-12-28 19:18] LABS: Basophils # (A) 0.03 X 10*3/uL (0.00-0.10); Basophils % (A) 0.8 %; Eosinophils # (A) 0.15 X 10*3/uL (0.04-0.35); HCT 43.5 % (37.2-46.3); HGB 13.3 g/dL (12.0-15.0); Lymphocytes # (A) 1.29 X 10*3/uL (0.90-5.00); Lymphocytes % (A) 34.2 %; MCH 28.9 pg (27.0-32.0); MCHC 30.6 g/dL (32.0-37.0); MCV 94.6 FL (80.0-97.0); Mean Platelet Volume 10.1 FL (9.5-12.2); Monocytes # (A) 0.32 X 10*3/uL (0.20-1.00); Monocytes % (A) 8.5 %; NRBC Per 100 WBC 0 X 10*3/uL (0.00-0.01); Neutrophils # (A) 1.97 X 10*3/uL (1.80-7.70); Neutrophils % (A) 52.2 %; Platelet Count 319 X 10*3/uL (140-440); RDW 15.2 % (11.5-14.5); WBC 3.77 X 10*3/uL (4.50-10.00)
== END | disposition home or self-care (01) ==
LOC: LABWHC1 10:52
PROVIDERS: ATTEND Internal Medicine
DX: M86.672 Other chronic osteomyelitis, left ankle and foot (principal)
CPT/HCPCS: 36415; 85025

== ENCOUNTER → 2024-01-11 | Outpatient (CLI) | payer MEDICARE ==
[2024-01-11 19:20] LABS: HGB 11.2 g/dL (12.0-15.0); MCH 28.5 pg (27.0-32.0); MCV 89.1 FL (80.0-97.0); Mean Platelet Volume 10.7 FL (9.5-12.2); NRBC Per 100 WBC 0 X 10*3/uL (0.00-0.01); Platelet Count 221 X 10*3/uL (140-440); RBC 3.93 X 10*6/uL (4.10-5.20); RDW 14.7 % (11.5-14.5); WBC 4.12 X 10*3/uL (4.50-10.00)
[2024-01-11 19:21] LABS: Basophils # (A) 0.03 X 10*3/uL (0.00-0.10); Basophils % (A) 0.7 %; Eosinophils # (A) 0.14 X 10*3/uL (0.04-0.35); Eosinophils % (A) 3.4 %; Lymphocytes # (A) 1.24 X 10*3/uL (0.90-5.00); Lymphocytes % (A) 30.1 %; Monocytes # (A) 0.45 X 10*3/uL (0.20-1.00); Monocytes % (A) 10.9 %; Neutrophils # (A) 2.25 X 10*3/uL (1.80-7.70); Neutrophils % (A) 54.7 %
== END | disposition home or self-care (01) ==
LOC: LABWHC1 14:02
PROVIDERS: ATTEND Internal Medicine
DX: M86.672 Other chronic osteomyelitis, left ankle and foot (principal)
CPT/HCPCS: 36415; 85025

== ENCOUNTER 2024-04-05 20:14 | Emergency (ER) | payer OTHER, MEDICARE ==
[2024-04-05 20:20] VITALS: RESP 20
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
[2024-04-05 22:37] LABS: Basophils % (A) 0 %; Eosinophils % (A) 0 %; HCT 37.1 % (34.0-46.0); HGB 11.8 gm/dL (11.4-16.0); Hypochromasia Slight; Lymphocytes # (A) 0.6 k/uL (1.0-4.8); Lymphocytes % (A) 5 %; MCH 29.3 pg (25.0-35.0); MCHC 31.7 g/dL (31.0-37.0); MCV 92.3 fL (80.0-100.0); Mean Platelet Volume 7.2; Monocytes # (A) 0.5 k/uL (0-1.0); Monocytes % (A) 4 %; Neutrophils # (A) 11.5 k/uL (1.3-7.7); Neutrophils % (A) 90 %; Platelet Count 368 k/uL (150-450); RBC 4.02 m/uL (3.80-5.40); RDW 15.8 % (11.5-15.5); WBC 12.8 k/uL (3.8-10.6)
[2024-04-05 22:45] LABS: ALT 15 U/L (4-34); AST 19 U/L (14-36); African American GFR (CKD) >90 (>60 ml/min/1.73 sqM); Alkaline Phosphatase 81 U/L (38-126); Anion Gap 12 mmol/L; Blood Urea Nitrogen 18 mg/dL (7-17); Calcium 9.2 mg/dL (8.4-10.2); Carbon Dioxide 25 mmol/L (22-30); Chloride 99 mmol/L (98-107); Glucose 138 mg/dL (74-99); Non-African American GFR(CKD) >90 (>60 ml/min/1.73 sqM); Potassium 3.4 mmol/L (3.5-5.1); Sodium 136 mmol/L (137-145); Total Protein 7.9 g/dL (6.3-8.2)
[2024-04-06 00:12] VITALS: BP 136/85; PULSE 98; TEMP 101.4
== END 2024-04-06 00:12 | disposition home or self-care (01) ==
LOC: EC 20:14
CPT/HCPCS: 36415; 80053; 85025; 87040; 87636; 99283

== ENCOUNTER → 2024-04-25 | Outpatient (CLI) | payer MEDICARE ==
[2024-04-25 15:31] LABS: ALT 15 U/L (8-44); AST 19 U/L (13-35); Albumin 3.9 g/dL (3.8-4.9); Albumin/Globulin Ratio 0.89 Ratio (1.60-3.17); Alkaline Phosphatase 86 U/L (41-126); BUN/Creat Ratio 17.17 Ratio (12.00-20.00); Blood Urea Nitrogen 10.3 mg/dL (9.0-27.0); Calcium 9.4 mg/dL (8.7-10.3); Carbon Dioxide 24.5 mmol/L (21.6-31.8); Chloride 104 mmol/L (96-109); Chol/HDL Ratio 2.86 Ratio; Globulin 4.4 g/dL (1.6-3.3); Glucose 88 mg/dL (70-110); LDL Cholesterol,Calculated 112.6 mg/dL (0.0-131.0); Potassium 4.2 mmol/L (3.5-5.5); Sodium 141 mmol/L (135-145); Total Bilirubin 0.4 mg/dL (0.3-1.2); Total Protein 8.3 g/dL (6.2-8.2)
[2024-04-25 16:13] LABS: Basophils # (A) 0.04 X 10*3/uL (0.00-0.10); Eosinophils # (A) 0.14 X 10*3/uL (0.04-0.35); Eosinophils % (A) 3.5 %; HCT 39.9 % (37.2-46.3); HGB 12.3 g/dL (12.0-15.0); Immature Grans, Automated 0 %; Lymphocytes # (A) 1.35 X 10*3/uL (0.90-5.00); Lymphocytes % (A) 33.4 %; MCH 29.2 pg (27.0-32.0); MCHC 30.8 g/dL (32.0-37.0); MCV 94.8 FL (80.0-97.0); Mean Platelet Volume 10.5 FL (9.5-12.2); Monocytes # (A) 0.38 X 10*3/uL (0.20-1.00); Monocytes % (A) 9.4 %; NRBC Per 100 WBC 0 X 10*3/uL (0.00-0.01); Neutrophils # (A) 2.13 X 10*3/uL (1.80-7.70); Neutrophils % (A) 52.7 %; Platelet Count 365 X 10*3/uL (140-440); RBC 4.21 X 10*6/uL (4.10-5.20); RDW 14.8 % (11.5-14.5); WBC 4.04 X 10*3/uL (4.50-10.00)
== END | disposition home or self-care (01) ==
LOC: LABWHC1 11:54
PROVIDERS: ATTEND Family Medicine
DX: Z00.00 Encounter for general adult medical examination without abnormal findings (principal); E55.9 Vitamin D deficiency, unspecified; G89.21 Chronic pain due to trauma; I89.0 Lymphedema, not elsewhere classified; Z79.899 Other long term (current) drug therapy; Z79.01 Long term (current) use of anticoagulants
CPT/HCPCS: 36415; 80053; 80061; 82306; 84443; 85025

== ENCOUNTER → 2024-06-03 | Outpatient (CLI) | payer MEDICARE ==
--- NOTE | 2024-06-06 08:36 | MM ---
Reason for Exam: Screening (asymptomatic). Last mammogram was performed 1 year(s) and 7 month(s) ago. Patient History: Menarche at age 17. First Full-Term at age 27. Perimenopausal. Maternal cousin had breast cancer, age 55. Maternal aunt had breast cancer, age 30. Risk Values: Lashawn 5 year model risk: 1.5%. NCI Lifetime model risk: 7.0%. Prior Study Comparison: 10/24/2015 Bilateral Screening Mammogram, [facility]. 04/21/2019 Bilateral Screening Mammogram, [facility]. 11/06/2022 Bilateral MG screening mammo w CAD, [facility]. Tissue Density: The breasts are almost entirely fatty. Findings: Analyzed By CAD. Right breast: There is no suspicious group of microcalcifications or new suspicious mass. Left breast: There is no suspicious group of microcalcifications or new suspicious mass. Benign-appearing calcifications left breast. Overall Assessment: Benign, BI-RAD 2 Management: Screening Mammogram of both breasts in [address] [facility] will attempt to contact patient to return for supplemental views and ultrasound if indicated. Patient should continue monthly self-breast exams. A clinical breast exam by your physician is recommended on an annual basis. This exam should not preclude additional follow-up of suspicious palpable abnormalities. Note on Lashawn scores and lifetime risk: 1. A Lashawn score greater than 3% is considered moderate risk. If this is the case, consider specialist referral to assess eligibility for a risk reducing agent. 2. If overall lifetime risk for the development of breast cancer is 20% or higher, the patient may qualify for future screening with alternating mammogram and breast MRI. [facility], , 06/06/2024 8:33 AM. Electronically signed and approved by: Yasmany Trivedi DO
== END | disposition home or self-care (01) ==
LOC: RADMAMWWP 14:00
PROVIDERS: ATTEND Family Medicine
DX: Z12.31 Encounter for screening mammogram for malignant neoplasm of breast (principal); Z80.3 Family history of malignant neoplasm of breast; R92.313 Mammographic fatty tissue density, bilateral breasts
CPT/HCPCS: 77063; 77067

== ENCOUNTER → 2024-06-17 | Outpatient (CLI) | payer MEDICARE | END | disposition home or self-care (01) | LOC: LABWHC1 09:58 | PROVIDERS: ATTEND Internal Medicine | DX: M86.9 Osteomyelitis, unspecified (principal) | CPT/HCPCS: 36415; 85025; 85652 ==

== ENCOUNTER → 2024-11-19 | Outpatient (CLI) | payer MEDICARE ==
[2024-11-20 06:32] LABS: Basophils # (A) 0.04 X 10*3/uL (0.00-0.10); Basophils % (A) 0.9 %; Eosinophils # (A) 0.17 X 10*3/uL (0.04-0.35); Eosinophils % (A) 3.9 %; HCT 40.9 % (37.2-46.3); HGB 12.7 g/dL (12.0-15.0); Lymphocytes # (A) 1.07 X 10*3/uL (0.90-5.00); Lymphocytes % (A) 24.7 %; MCH 28.8 pg (27.0-32.0); MCHC 31.1 g/dL (32.0-37.0); MCV 92.7 FL (80.0-97.0); Mean Platelet Volume 11.1 FL (9.5-12.2); Monocytes # (A) 0.35 X 10*3/uL (0.20-1.00); Monocytes % (A) 8.1 %; NRBC Per 100 WBC 0 X 10*3/uL (0.00-0.01); Neutrophils # (A) 2.68 X 10*3/uL (1.80-7.70); Neutrophils % (A) 61.9 %; Platelet Count 330 X 10*3/uL (140-440); RBC 4.41 X 10*6/uL (4.10-5.20); RDW 14.5 % (11.5-14.5); WBC 4.33 X 10*3/uL (4.50-10.00)
[2024-11-20 08:52] LABS: Prealbumin 14.3 mg/dL (18.0-42.0)
[2024-11-20 12:31] LABS: Erythrocyte Sedimentation Rate 69 mm/Hr (0-30)
== END | disposition home or self-care (01) ==
LOC: LABWHC1 09:52
PROVIDERS: ATTEND Physical Medicine & Rehabilitation
DX: L89.894 Pressure ulcer of other site, stage 4 (principal); L89.893 Pressure ulcer of other site, stage 3
CPT/HCPCS: 36415; 84134; 84681; 85025; 85652